=== PATIENT | female | born 1965 | race Caucasian/White ===

== ENCOUNTER 2016-09-03 04:05 | Emergency (ER) | payer BC ==
[2016-09-03] MEDS ORDERED: KETOROLAC TROMETHAMINE 30 MG/1 ML VIAL IVPUSH ONE (04:09)
[2016-09-03] MEDS ORDERED: SODIUM CHLORIDE 1,000 ML IV ONE (04:09)
[2016-09-03] MEDS ORDERED: ONDANSETRON 4 MG/2 ML VIAL IVPB ONE (04:09)
--- NOTE | 2016-09-03 04:12 | PDOC ---
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 Patient has history of migraine and said that she is very nauseous and threw up and unable to keep any of her medications for migraines down so comes in for evaluation. Patient denies any fevers or chills. Patient denies any neck stiffness. Patient is otherwise healthy. PAST MEDICAL HISTORY: no significant history PAST SURGICAL HISTORY: no significant history FAMILY HISTORY: no pertinant history SOCIAL HISTORY: Pt lives with family and is employed. MEDICATIONS: reviewed ALLERGIES: As per nursing notes Review of Systems General: No fevers or chills, no weakness, no weight loss HEENT: No change in vision. No sore throat,. No ear pain CardioVascular: No chest pain or shortness of breath Respiratory:No cough, or wheezing. Gastrointestinal: no nausea, vomitting, diarrhea or constipation, No rectal bleeding Genitourinary: No dysuria, hematuria, or frequency Musculoskeletal: No joint or muscle pain or swelling Neurologic:+ Migraine headache, vertigo, dizziness or loss of consciousness Psychiatric: nor depression Skin: No rashes or easy bruising Endocrine: no increased thirst or abnormal weight change Allergic: no skin or latex allergy All other systems reviewed and normal GENERAL: The patient is awake, alert, and fully oriented, in no acute distress. HEAD: Normal with no signs of trauma. EYES: Pupils equal, round and reactive to light, extraocular movements intact, sclera anicteric, conjunctiva clear. EXTREMITIES: Normal range of motion, no edema. NEUROLOGICAL: Normal speech, normal gait. PSYCH: Normal mood, normal affect. SKIN: Warm, Dry, normal turgor, no rashes or lesions noted. Assessment and plan: This is a 50-year-old female who comes in complaining of her typical migraine. Patient had been vomiting at home and was unable to keep down her migraine medication so she was given Zofran, IV fluids and pain medication with improvement of her symptoms and discharged home. Past History - Past Medical History Allergies/Adverse Reactions: Allergies Allergy/AdvReac Type Severity Reaction Status Date / Time No Known Allergies Allergy Verified 09/16/13 12:04 Home Medications: Ambulatory Orders Valsartan [Diovan] 80 mg PO DAILY 09/16/13 Ondansetron [Zofran Odt -] 4 mg SL BID #14 od.tablet 09/03/16 HTN: Yes - Psycho/Social/Smoking Cessation Hx Anxiety: No Suicidal Ideation: No Smoking History: Never smoked Hx Alcohol Use: No Substance Use Type: None *DC/Admit/Observation/Transfer Diagnosis at time of Disposition: Migraine Qualifiers: Migraine type: other Status migrainosus presence: without status migrainosus Intractability: not intractable Qualified Code(s): G43.809 - Other migraine, not intractable, without status migrainosus - Discharge Dispostion Disposition: HOME Condition at time of disposition: Stable Admit: No - Prescriptions Prescriptions: Ondansetron [Zofran Odt -] 4 mg SL BID #14 od.tablet - Patient Instructions Additional Instructions: Tylenol or Advil as needed for additional pain. Zofran as prescribed for nausea. Return to the emergency department immediately with ANY new, persistent or worsening symptoms. Continue any medications as previously prescribed by your physician. You should follow up with your primary doctor as soon as possible regarding today's emergency department visit. . Please make sure your doctor reviews the results of your emergency evaluation. Thank you for coming to the Emergency Department today for your care. It was a pleasure to see you today. Please note that your evaluation is INCOMPLETE until you follow-up with your doctor.
[2016-09-03] MEDS ORDERED: ONDANSETRON 4 MG/2 ML VIAL ONE (04:14)
[2016-09-03] MEDS ORDERED: KETOROLAC TROMETHAMINE 30 MG/1 ML VIAL ONE (04:14)
[2016-09-03 04:24] VITALS: BP 152/88; PULSE 76; TEMP 98.7; BMI 24.6
== END 2016-09-03 06:24 | disposition home or self-care (01) ==
LOC: FER 04:05
PROC: 3E0333Z Introduction of Anti-inflammatory into Peripheral Vein, Percutaneous Approach (ICD-10-PCS; principal; 2016-09-03)
PROC: 3E033GC Introduction of Other Therapeutic Substance into Peripheral Vein, Percutaneous Approach (ICD-10-PCS; 2016-09-03)
PROC: 3E0337Z Introduction of Electrolytic and Water Balance Substance into Peripheral Vein, Percutaneous Approach (ICD-10-PCS; 2016-09-03)
DX: G43.809 Other migraine, not intractable, without status migrainosus (principal); I10 Essential (primary) hypertension
CPT/HCPCS: 99281-25

== ENCOUNTER 2017-03-17 07:40 | Day surgery (SDC) | payer BC ==
[2017-03-14 11:21] VITALS: BMI 25.5
[2017-03-17] MEDS ORDERED: ONDANSETRON 4 MG/2 ML VIAL ONE (08:28)
[2017-03-17 09:13] VITALS: TEMP 97.8
[2017-03-17 10:09] VITALS: BP 102/70; PULSE 67
== END 2017-03-17 10:09 | disposition home or self-care (01) ==
LOC: JASU-ENDO 07:40
PROVIDERS: ATTEND Internal Medicine Gastroenterology
PROC: 0DJD8ZZ Inspection of Lower Intestinal Tract, Via Natural or Artificial Opening Endoscopic (ICD-10-PCS; principal; 2017-03-17 09:00)
DX: Z12.11 Encounter for screening for malignant neoplasm of colon (principal)
CPT/HCPCS: 84703

== ENCOUNTER 2022-05-07 15:32 | Emergency (ER) | payer BC ==
[2022-05-07 15:44] VITALS: RESP 18; TEMP 97.9; BMI 26.5
[2022-05-07 16:04] VITALS: BP 166/103; PULSE 84
[2022-05-07 16:30] LABS: HEMATOCRIT 40.7 % (32.4-45.2); HEMOGLOBIN 13.5 G/dL (10.7-15.3); MCH 30.9 pg (25.7-33.7); MCHC 33.2 g/dl (32.0-36.0); MEAN CELL VOLUME 93.2 fl (80-96); PLATELET COUNT 239.3 10^3/uL (134-434); RBC 4.37 10^6/uL (3.60-5.2); RDW 13.8 % (11.6-15.6); WHITE BLOOD COUNT 8.4 10^3/uL (4.0-10.8)
[2022-05-07 16:44] LABS: ALBUMIN 4.3 g/dl (3.4-5.0); BILIRUBIN,TOTAL 0.7 mg/dl (0.2-1); CALCIUM 9.3 mg/dl (8.5-10); CREATININE 0.8 mg/dl (0.55-1.3); TOT PROT 7.2 g/dl (6.4-8.2)
== END 2022-05-07 17:33 | disposition home or self-care (01) ==
LOC: FER 15:32
DX: R00.2 Palpitations (principal)
CPT/HCPCS: 0241U-QW; 36415; 80053; 84436; 84443; 84479; 84484; 85027; 93005; 99284-25

== ENCOUNTER 2022-05-31 04:38 | Day surgery (SDC) | payer BC ==
[2022-05-29 12:32] VITALS: BMI 26.5
[2022-05-31 08:32] VITALS: TEMP 97.5
[2022-05-31 09:03] VITALS: BP 110/67; PULSE 70; RESP 18
== END 2022-05-31 09:25 | disposition home or self-care (01) ==
LOC: JASU-ENDO 04:38
PROVIDERS: ATTEND Internal Medicine Gastroenterology
PROC: 0DBN8ZX Excision of Sigmoid Colon, Via Natural or Artificial Opening Endoscopic, Diagnostic (ICD-10-PCS; principal; 2022-05-31 08:00)
DX: Z12.11 Encounter for screening for malignant neoplasm of colon (principal); K63.5 Polyp of colon; K59.89 Other specified functional intestinal disorders
CPT/HCPCS: 88305-TC

== ENCOUNTER 2023-10-16 11:10 | Emergency (ER) | payer BC ==
[2023-10-16 11:25] VITALS: BP 144/96; PULSE 82; RESP 18; TEMP 99.5; BMI 26.5
[2023-10-16] MEDS ORDERED: OXYMETAZOLINE 0.05% NASAL SOLUTION 15 ML BOTTLE NS ONE ×2 (11:30→11:34)
[2023-10-16] MEDS ORDERED: FLUTICASONE PROP 0.05% 16 GM NASAL SPRAY NS ONE (11:30)
== END 2023-10-16 12:06 | disposition home or self-care (01) ==
LOC: FER 11:10
DX: R05.2 Subacute cough (principal); R09.81 Nasal congestion
CPT/HCPCS: 71046-TC-FY; 99283-25